=== PATIENT | female | born 1975 | race African-American/Black ===

== ENCOUNTER 2018-03-21 13:02 | Emergency (ER) | payer OTHER ==
[~2018-03-21] VITALS: Ht 162.6 cm; Wt 97.5 kg
[~2018-03-21 13:02] MED LIST: ABILIFY5 M1 PO; BUPROPION HCL75 M1 PO; ESCITALOPRAM OX20 MG PO; GLYXAMBI 25 MG1 EACH PO; HUMALOG100 UNIT/2 SC; HYCET 7.5 MG-3473 ML PO; PROTONIX40 M3 PO; VGO 301 EACH SC; WELLBUTRIN XL150 M2 PO; ZOFRAN4 M1 SL; [UNRECOGNIZED DRUG - SUPPLY]
--- NOTE | 2018-03-21 13:29 | ED CARDIAC/CP/PALPITATIONS ---
History of Present Illness General Chief Complaint: Chest Pain Stated Complaint: CP Source: patient Exam Limitations: no limitations Vital Signs & Intake/Output Vital Signs & Intake/Output Vital Signs Date Time Temp Pulse Resp B/P B/P Pulse O2 O2 Flow FiO2 Mean Ox Delivery Rate 03/21 1501 99.1 75 18 142/84 100 Room Air 03/21 1315 97.2 84 20 136/85 98 Room Air Allergies Coded Allergies: tree nut (Severe, THROAT CLOSES 06/03/16) Penicillins (Intermediate, HIVES 06/03/16) Sulfa (Sulfonamide Antibiotics) (Intermediate, HIVES 06/03/16) Reconcile Medications Aripiprazole (Abilify) 5 MG TABLET 1 TAB PO DAILY DEPRESSION (Reported) Bupropion HCl 75 MG TABLET 1 TAB PO BID MENTAL HEALTH Escitalopram Oxalate 20 MG TABLET 1 TAB PO DAILY MENTAL HEALTH (Reported) Hydrocodone/Acetaminophen (Hycet 7.5 MG-325 MG/15 Ml Soln) 473 ML SOLUTION 15 ML PO Q4P PRN PAIN Pantoprazole Sodium (Protonix) 40 MG TABLET.DR 1 TAB PO DAILY ANTI ULCER Triage Note: PT STATES SHE WAS WATCHING TV WHEN SHE STARTED HAVING [facility] ABOUT AN HOUR AGO. +SOB ASSOCIATED WITH PAIN. DENIES NAUSEA. 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 DENIES CARDIAC HX Triage Nurses Notes Reviewed? yes : No Patient currently breastfeeds: No HPI: 42F PMH IDDM presenting with mid-sternal chest pain for one hour. Patient was at home at rest and pain started, mid-sternal, 8/10, non-radiating, not associated with SOB, palpitations, diaphoresis, lightheadedness, dizziness, or any other symptom. Patient was eating Cheetos prior to chest pain starting. The pain worsened when she laid flat. She has no personal or family cardiac history and has never had a stress test or cardiac cath. Does not smoke. Past History Travel History Traveled to [place] past 21 day No Medical History Any Pertinent Medical History? see below for history Neurological: NONE EENT: NONE Cardiovascular: NONE Respiratory: NONE Gastrointestinal: NONE Hepatic: NONE Renal: NONE Musculoskeletal: NONE Psychiatric: depression Endocrine: diabetes Blood Disorders: NONE Cancer(s): NONE [employer]/Reproductive: NONE History of MRSA: No History of VRE: No History of CDIFF: No Surgical History Surgical History: non-contributory Psychosocial History Who do you live with Spouse Services at Home None What is your primary language Ukrainian Tobacco Use: Never used ETOH Use: denies use Illicit Drug Use: denies illicit drug use Family History Hx Contributory? No Review of Systems Review of Systems Constitutional: Reports: no symptoms. EENTM: Reports: no symptoms. Respiratory: Reports: no symptoms. Cardiovascular: Reports: no symptoms. GI: Reports: no symptoms. Genitourinary: Reports: no symptoms. Musculoskeletal: Reports: no symptoms. Skin: Reports: no symptoms. Neurological/Psychological: Reports: no symptoms. Hematologic/Endocrine: Reports: no symptoms. Immunologic/Allergic: Reports: no symptoms. All Other Systems: Reviewed and Negative Physical Exam Physical Exam General Appearance: well developed/nourished, no apparent distress Head: atraumatic, normal appearance Eyes: Bilateral: normal appearance. Ears, Nose, Throat: hearing grossly normal Neck: normal inspection, full range of motion Respiratory: normal breath sounds, chest non-tender, no respiratory distress Cardiovascular: regular rate/rhythm Gastrointestinal: soft, non-tender Back: normal inspection, normal range of motion Extremities: normal inspection, normal range of motion Neurologic/Psych: awake, alert, oriented x 3, normal mood/affect Skin: intact, normal color, warm/dry Core Measures ACS in differential dx? Yes No ASA d/t took at home CVA/TIA Diagnosis No Sepsis Present: No Sepsis Focused Exam Completed? No Progress Differential Diagnosis: AMI, costochondritis, musculoskeletal pain, myocarditis, pericarditis, unstable angina Plan of Care: Orders Procedure Date/time Status TROPONIN LEVEL 03/21 1630 Complete EKG 03/21 1630 Active TROPONIN LEVEL 03/21 1327 Complete COMPREHENSIVE METABOLIC PANEL 03/21 1327 Complete CBC WITHOUT DIFFERENTIAL 03/21 1327 Complete EKG 03/21 1304 Active Laboratory Tests 03/21/18 1633: Troponin I 0.02 03/21/18 1354: Anion Gap 11, Estimated GFR > 60, BUN/Creatinine Ratio 18.6, Glucose 415 H, Calcium 9.3, Total Bilirubin 0.7, AST 16, ALT 15, Alkaline Phosphatase 76, Troponin I < 0.01, Total Protein 7.0, Albumin 3.6, Globulin 3.4, Albumin/ Globulin Ratio 1.1 03/21/18 1334: CBC w Diff NO MAN DIFF REQ, RBC 4.74, MCV 87.6, MCH 29.4, MCHC 33.5, RDW 12.7, MPV 9.1, Gran % 63.3, Lymphocytes % 29.3, Monocytes % 5.4, Eosinophils % 1.3, Basophils % 0.7, Absolute Granulocytes 4.1, Absolute Lymphocytes 1.9, Absolute Monocytes 0.4, Absolute Eosinophils 0.1, Absolute Basophils 0 Initial ED EKG: normal sinus rhythm, no ST T wave changes Departure Departure Disposition: HOME OR SELF CARE Condition: Stable Clinical Impression Primary Impression: GERD (gastroesophageal reflux disease) Qualifiers: Esophagitis presence: without esophagitis Qualified Code: K21.9 - Gastro-esophageal reflux disease without esophagitis Referrals: Elsa CARDONA,Shmuel Nur MD,Shantanu Garcia (PCP/Family) Additional Instructions: Follow up with your PCP. Take Omeprazole every morning on an empty stomach for 4 weeks. If there is no improvement, follow up with the GI specialist provided. After 4 weeks, you can stop the Omeprazole. If the pain recurs, see the GI specialist. If there are any new or worsening symptoms, return to ER. Departure Forms: Customer Survey General Discharge Information Critical Care Note Critical Care Note Critical Care Time: non-applicable
[2018-03-21 13:59] LABS: ABSOLUTE BASOPHIL COUNT 0 /CUMM (0.0-0.2); ABSOLUTE EOSINOPHIL COUNT 0.1 /CUMM (0.0-0.7); ABSOLUTE GRANULOCYTE CT 4.1 /CUMM (1.4-6.5); ABSOLUTE LYMPH COUNT 1.9 /CUMM (1.2-3.4); ABSOLUTE MONOCYTE COUNT 0.4 /CUMM (0.10-0.60); BASOPHIL % 0.7 % (0.0-2.0); EOSINOPHIL % 1.3 % (0-5); GRANULOCYTE % 63.3 % (42.2-75.2); HEMATOCRIT 41.5 % (37-47); MEAN CORPUSCULAR HGB 29.4 PG (27.0-31.0); MEAN CORPUSCULAR HGB CONC 33.5 G/DL (33.0-37.0); MEAN CORPUSCULAR VOLUME 87.6 FL (81.0-99.0); MEAN PLATELET VOLUME 9.1 FL (7.4-10.4); PLATELET COUNT 407 /CUMM (130-400); RBC DISTRIBUTION WIDTH 12.7 % (11.5-14.5); RED BLOOD CELL CT 4.74 /CUMM (4.20-5.40); WHITE BLOOD CELL COUNT 6.5 /CUMM (4.8-10.8)
[2018-03-21 17:36] VITALS: BP 138/88
== END 2018-03-21 17:36 ==
LOC: ERH 13:02
PROVIDERS: Internal Medicine
DX: K21.9 Gastro-esophageal reflux disease without esophagitis (principal); R07.2 Precordial pain; E11.9 Type 2 diabetes mellitus without complications
CPT/HCPCS: 93005; 93010; 96360; 96372; J1815